=== PATIENT | male | born 1965 | race Caucasian/White ===

== ENCOUNTER 2017-02-22 05:23 | Emergency (ER) | payer SELFPAY ==
--- NOTE | 2017-02-22 08:26 | DIAGNOSTIC IMAGING REPORT ---
PROCEDURE: XR CHEST 1 VIEW INDICATION: CHEST PAIN TECHNIQUE: Single view chest. 05:43 hours COMPARISON: None. FINDINGS: The cardiomediastinal contour and central vasculature are normal. The lungs are clear without focal consolidation, pleural effusion or pneumothorax. The osseous structures are intact. IMPRESSION: 1. No evidence of acute cardiopulmonary disease.
--- NOTE | 2017-02-22 09:44 | ED CLINICAL REPORT ---
Clinical Report - Physicians/Mid Levels [facility] [address] [place] [place] [address] 02/22/2017 5:23 Patient: KD DOMINGUEZ Time Seen: 525. Arrived- By private vehicle. Historian- patient. HISTORY OF PRESENT ILLNESS Chief Complaint: CHEST PAIN. At its maximum, severity described as moderate. When seen in the E.D., severity described as moderate. Modifying factors. Not worsened by anything. Not relieved by anything. It is described as burning and it is described as located in the central chest area. No radiation. This started today and is still present. It was abrupt in onset and has been constant and waxing/waning but is not gone now. Onset during rest. The patient has had nausea and vomiting. (burping and sour taste in mouth.). No difficulty breathing or diaphoresis. No additional chest pain. Similar symptoms previously: (hx of GERD). Recent medical care: Not recently seen/assessed. REVIEW OF SYSTEMS No fever, chills or skin rash. All systems otherwise negative, except as recorded above. PAST HISTORY Denies the following risk factors for DVT/PE - history of DVT and pulmonary embolism, recent surgery, recent MS and congestive heart failure. Denies the following risk factors for DVT/PE - cancer, clotting disorder, estrogens, obesity and immobility. Denies the following risk factors for DVT/PE - advanced in age and vena cava filter. Medications: Triglyceride pill. Blood Pressure Pill. Ranitidine HCl Oral. Aciphex Oral. Allergies: Codeine. SOCIAL HISTORY Never smoker. No alcohol use or drug use. No recent travel. Is a local resident. FAMILY HISTORY History of heart disease with premature onset in first-degree relative (father). ADDITIONAL NOTES The nursing notes have been reviewed. PHYSICAL EXAM Vital Signs: 02/22/2017 05:30 BP: 153/84. HR: 57. RR: 16. O2 saturation: 95%. 02/22/2017 05:29 Temp: 97.7 F. Blood pressure normal. Oxygen saturation normal. Appearance: Alert. Oriented X3. Patient in mild distress. (non-toxic. polite. pleasant. cooperative.). ENT: Ears normal. Nose normal. Pharynx normal. Neck: Normal inspection. Neck supple. CVS: Normal heart rate and rhythm. Heart sounds normal. Pulses normal. Respiratory: No respiratory distress. Breath sounds normal. Chest nontender. Abdomen: Soft and nontender. Bowel sounds normal. Back: Normal external inspection. Skin: Skin warm and dry. Normal skin color. No rash. Normal skin turgor. Extremities: Extremities exhibit normal ROM. No lower extremity edema. Neuro: Oriented X 3. No motor deficit. No sensory deficit. LABS, X-RAYS, AND EKG EKG: No acute process. No acute ischemia. Narrow-complex bradycardia (56). Sinus bradycardia. Normal P waves. Normal ENA. Normal QRS complex. Normal axis. Normal ST and T waves, QT and QTc. Prior EKG unavailable. The study has been interpreted contemporaneously by me. The study has been independently viewed by me. The EKG appears to be a good tracing. Chest X-ray: No acute disease. Normal lung markings present. Mediastinum normal. Great vessels normal. No infiltrate. No fracture. No bony lesion present. Views: PA. Technique: good. The X-rays were independently viewed by me and interpreted contemporaneously by me. Laboratory Tests: UA-Culture if indicated: (FRANCISCO: 02/22/2017 10:10) ( MsgRcvd 02/22/2017 10:26) Final results Test Result Flag Units (Reference) URINE COLOR YELLOW URINE APPEARANCE CLEAR URINE GLUCOSE NEGATIVE (NEGATIVE) URINE BILIRUBIN NEGATIVE (NEGATIVE) URINE KETONE NEGATIVE (NEGATIVE) URINE SPECIFIC GRAVITY 1.015 (1.010-1.030) URINE PH 7.0 (5.0-8.0) URINE PROTEIN NEGATIVE (NEGATIVE) URINE UROBILINOGEN 0.2 EU/dL (0.2-1.0) URINE NITRITE NEGATIVE (NEGATIVE) URINE BLOOD NEGATIVE (NEGATIVE) URINE LEUK ESTERASE NEGATIVE (NEGATIVE) URINE RBC 0-1 rbc/hpf (0-1) URINE WBC 0-1 wbc/hpf (0-1) URINE EPITHELIAL CELLS 0-1 EPI/hpf (0-5) URINE BACTERIA NONE SEEN (NONE SEEN) URINE COMMENT CULT NOT INDICATED URINE CULTURES ARE SET-UP BASED ON THE FOLLOWING CRITERIA:POSITIVE NITRITEPOSITIVE LEUKOCYTE ESTERASEGREATER THAN 10 WHITE BLOOD CELLSMODERATE (2+) OR GREATER BACTERIA CBC w Diff: (FRANCISCO: 02/22/2017 05:29) ( [facility] 02/22/2017 05:43) Final results Test Result Flag Units (Reference) WHITE BLOOD COUNT 5.8 K/uL (4.5-11.5) RED BLOOD COUNT 4.88 M/uL (4.50-5.90) HEMOGLOBIN 13.9 gm/dL (13.5-17.5) HEMATOCRIT 41.5 % (41.0-53.0) MEAN CELL VOLUME 85 fL (80-100) MEAN CORPUSCULAR HGB 28 pg (26-34) MEAN CORPUSCULAR HGB CONC 33 g/dL (31-37) RED CELL DISTRIBUTION WIDTH 14.1 % (11.6-14.8) PLATELET COUNT 199 K/uL (150-400) NEUTROPHIL % 48.3 L % (50-75) LYMPH % 41.9 H % (25-40) MONO % 7.7 % (3-14) EOSINOPHIL % 1.8 % (0-4) BASOPHIL % 0.3 % (0-2) PT with INR: (FRANCISCO: 02/22/2017 05:29) ( [facility] 02/22/2017 05:50) Final results Test Result Flag Units (Reference) INR 0.9 (0.8-1.2) Low Intensity Therapy: INR 1.5-2.0 PT range 18.5-23.1Mod.Intensity Therapy: INR 2.0-3.0 PT range 23.1-31.5High Intensity Therapy: INR 2.5-3.5 PT range 27.4-35.5High Intensity Therapy 2: INR 3.0-4.0 PT range 31.5-39.3 Troponin-I: (FRANCISCO: 02/22/2017 11:49) ( [facility] 02/22/2017 12:33) Final results Test Result Flag Units (Reference) TROPONIN I 0.05 ng/mL (0.00-1.5) TROPONIN REFERENCE RANGE:<0.1 NEGATIVE0.1-1.5 INDETERMINANT>1.5 POSITIVE Troponin-I: (FRANCISCO: 02/22/2017 07:40) ( MsgRcvd 02/22/2017 08:25) Final results Test Result Flag Units (Reference) TROPONIN I 0.08 ng/mL (0.00-1.5) TROPONIN REFERENCE RANGE:<0.1 NEGATIVE0.1-1.5 INDETERMINANT>1.5 POSITIVE CMP: (FRANCISCO: 02/22/2017 05:29) ( MsgRcvd 02/22/2017 05:59) Final results Test Result Flag Units (Reference) GLUCOSE 142 H mg/dL (70-110) BUN 16 mg/dL (7-18) CREATININE 1.5 H mg/dL (0.6-1.3) Estimated GFR 52.87 mL/min Estimated GFR- >60 mL/min Note: Persistent reduction over 3 months in eGFR<60 mL/min/1.73 m2 defines CKD. Patients with eGFR values>=60 mL/min/1.73 m2 may also have CKD if evidence ofpersistent proteinuria. Additional information may be foundat www.kidney.org. SODIUM 139 mmol/L (136-145) POTASSIUM 4.0 mmol/L (3.5-5.1) CHLORIDE 102 mmol/L (98-107) CARBON DIOXIDE 28 mmol/L (21-32) CALCIUM 9.0 mg/dL (8.5-10.1) TOTAL PROTEIN 7.6 g/dL (6.4-8.2) ALBUMIN 3.8 g/dL (3.3-5.0) BILIRUBIN, TOTAL 0.5 mg/dL (0.0-1.0) ALKALINE PHOSPHATASE 57 U/L (46-116) AST (SGOT) 15 U/L (15-37) ALT (SGPT) 26 U/L (12-78) TROPONIN I 0.06 ng/mL (0.00-1.5) TROPONIN REFERENCE RANGE:<0.1 NEGATIVE0.1-1.5 INDETERMINANT>1.5 POSITIVE . PROGRESS AND PROCEDURES Course of Care: The patient is a 51-year-old male with past medical history significant for reflux presenting for evaluation of chest pain. Symptoms at this time appear to be reflux in nature. Patient will be evaluated with GI cocktail as well as laboratory studies for evaluation of patient's chest pain. Patient is at low risk on the well's score. Patient is agreeable to the treatment plan. At this time differential diagnosis includes gastritis versus reflux versus acute myocardial infarction. Patient was reevaluated after the GI cocktail was provided. Patient reported relief of his symptom Because of the patient's improvement with symptoms of pain with the GI cocktail feel the patient's discomfort is likely due to the reflux. Patient however will be evaluated with a delta troponin for further evaluation of the patient's possible cardiac etiology of his pain howeverlow likelihood at this point given the patient's response to the GI cocktail. Had a discussion with patient in regards to the workup and diagnosis as well as plan of care at this point. Patient is agreeable to staying in the emergency department until the second laboratory study has been obtained. The patient's laboratory studies and imaging as well as EKG are otherwise unremarkable. Patient is resting in bed in no acute distress. GI cocktail continued to improve the patient's pain while here in the emergency department. Do not feel further workup in the emergency department or admission to the hospital required at this point in time. Patient does report chest pain and will be referred to cardiology for further workup and management. Patient reports that he had a negative stress test about a year ago. This puts the patient that even lower risk for acute myocardial infarction. Patient will be encouraged to follow up with his family caseworker. If the patient is unable to follow up with his family caseworker informed him he is more than welcome to follow up with the family caseworker on our referral list. Prior to patient's departure from the emergency department is noted to be resting in bed and in no acute distress. CLINICAL IMPRESSION 02/22/2017 05:30 BP: 153/84. HR: 57. RR: 16. O2 saturation: 95%. 02/22/2017 05:29 Temp: 97.7 F. Oxygen saturation normal. Atypical chest pain .12 lead EKG performed. INSTRUCTIONS Prescription Medications: Prednisone every day for 5 days. Dispense sufficient quantity. No refills. (60 mg PO) (Electronically signed by John Márquez Dr. 02/27/2017 3:31) Time Seen: 525. Arrived- By private vehicle. Historian- patient. HISTORY OF PRESENT ILLNESS Chief Complaint: CHEST PAIN. At its maximum, severity described as moderate. When seen in the E.D., severity described as moderate. Modifying factors. Not worsened by anything. Not relieved by anything. It is described as burning and it is described as located in the central chest area. No radiation. This started today and is still present. It was abrupt in onset and has been constant and waxing/waning but is not gone now. Onset during rest. The patient has had nausea and vomiting. (burping and sour taste in mouth.). No difficulty breathing or diaphoresis. No additional chest pain. Similar symptoms previously: (hx of GERD). Recent medical care: Not recently seen/assessed. REVIEW OF SYSTEMS No fever, chills or skin rash. All systems otherwise negative, except as recorded above. PAST HISTORY Denies the following risk factors for DVT/PE - history of DVT and pulmonary embolism, recent surgery, recent MS and congestive heart failure. Denies the following risk factors for DVT/PE - cancer, clotting disorder, estrogens, obesity and immobility. Denies the following risk factors for DVT/PE - advanced in age and vena cava filter. Medications: Triglyceride pill. Blood Pressure Pill. Ranitidine HCl Oral. Aciphex Oral. Allergies: Codeine. SOCIAL HISTORY Never smoker. No alcohol use or drug use. No recent travel. Is a local resident. FAMILY HISTORY History of heart disease with premature onset in first-degree relative (father). ADDITIONAL NOTES The nursing notes have been reviewed. PHYSICAL EXAM Vital Signs: 02/22/2017 05:30 BP: 153/84. HR: 57. RR: 16. O2 saturation: 95%. 02/22/2017 05:29 Temp: 97.7 F. Blood pressure normal. Oxygen saturation normal. Appearance: Alert. Oriented X3. Patient in mild distress. (non-toxic. polite. pleasant. cooperative.). Neck: Normal inspection. Neck supple. CVS: Normal heart rate and rhythm. Heart sounds normal. Pulses normal. Respiratory: No respiratory distress. Breath sounds normal. Chest nontender. Abdomen: Soft and nontender. Bowel sounds normal. Back: Normal external inspection. Skin: Skin warm and dry. Normal skin color. No rash. Normal skin turgor. Extremities: Extremities exhibit normal ROM. No lower extremity edema. Neuro: Oriented X 3. No motor deficit. No sensory deficit. LABS, X-RAYS, AND EKG EKG: No acute process. No acute ischemia. Narrow-complex bradycardia (56). Sinus bradycardia. Normal P waves. Normal ENA. Normal QRS complex. Normal axis. Normal ST and T waves, QT and QTc. Prior EKG unavailable. The study has been interpreted contemporaneously by me. The study has been independently viewed by me. The EKG appears to be a good tracing. Chest X-ray: No acute disease. Normal lung markings present. Mediastinum normal. Great vessels normal. No infiltrate. No fracture. No bony lesion present. Views: PA. Technique: good. The X-rays were independently viewed by me and interpreted contemporaneously by me. Laboratory Tests: CBC w Diff: (FRANCISCO: 02/22/2017 05:29) ( MsgRcvd 02/22/2017 05:43) Final results Test Result Flag Units (Reference) WHITE BLOOD COUNT 5.8 K/uL (4.5-11.5) RED BLOOD COUNT 4.88 M/uL (4.50-5.90) HEMOGLOBIN 13.9 gm/dL (13.5-17.5) HEMATOCRIT 41.5 % (41.0-53.0) MEAN CELL VOLUME 85 fL (80-100) MEAN CORPUSCULAR HGB 28 pg (26-34) MEAN CORPUSCULAR HGB CONC 33 g/dL (31-37) RED CELL DISTRIBUTION WIDTH 14.1 % (11.6-14.8) PLATELET COUNT 199 K/uL (150-400) NEUTROPHIL % 48.3 L % (50-75) LYMPH % 41.9 H % (25-40) MONO % 7.7 % (3-14) EOSINOPHIL % 1.8 % (0-4) BASOPHIL % 0.3 % (0-2) PT with INR: (FRANCISCO: 02/22/2017 05:29) ( MsgRcvd 02/22/2017 05:50) Final results Test Result Flag Units (Reference) INR 0.9 (0.8-1.2) Low Intensity Therapy: INR 1.5-2.0 PT range 18.5-23.1Mod.Intensity Therapy: INR 2.0-3.0 PT range 23.1-31.5High Intensity Therapy: INR 2.5-3.5 PT range 27.4-35.5High Intensity Therapy 2: INR 3.0-4.0 PT range 31.5-39.3 Troponin-I: (FRANCISCO: 02/22/2017 07:40) ( [facility]) Final results Test Result Flag Units (Reference) TROPONIN I 0.08 ng/mL (0.00-1.5) TROPONIN REFERENCE RANGE:<0.1 NEGATIVE0.1-1.5 INDETERMINANT>1.5 POSITIVE CMP: (FRANCISCO: 02/22/2017 05:29) ( [facility] Final results Test Result Flag Units (Reference) GLUCOSE 142 H mg/dL (70-110) BUN 16 mg/dL (7-18) CREATININE 1.5 H mg/dL (0.6-1.3) Estimated GFR 52.87 mL/min Estimated GFR- >60 mL/min Note: Persistent reduction over 3 months in eGFR<60 mL/min/1.73 m2 defines CKD. Patients with eGFR values>=60 mL/min/1.73 m2 may also have CKD if evidence ofpersistent proteinuria. Additional information may be foundat www.kidney.org. SODIUM 139 mmol/L (136-145) POTASSIUM 4.0 mmol/L (3.5-5.1) CHLORIDE 102 mmol/L (98-107) CARBON DIOXIDE 28 mmol/L (21-32) CALCIUM 9.0 mg/dL (8.5-10.1) TOTAL PROTEIN 7.6 g/dL (6.4-8.2) ALBUMIN 3.8 g/dL (3.3-5.0) BILIRUBIN, TOTAL 0.5 mg/dL (0.0-1.0) ALKALINE PHOSPHATASE 57 U/L (46-116) AST (SGOT) 15 U/L (15-37) ALT (SGPT) 26 U/L (12-78) TROPONIN I 0.06 ng/mL (0.00-1.5) TROPONIN REFERENCE RANGE:<0.1 NEGATIVE0.1-1.5 INDETERMINANT>1.5 POSITIVE . Pulse Oximetry: 02/22/2017 05:30 O2 saturation: 95%. (FIO2 - room air). Interpretation: normal. PROGRESS AND PROCEDURES Course of Care: Pt was signed out to me by Dr. Márquez at change of shift, pending repeat troponin and stress test in the afternoon. Pt remained stable and without further complaints in the ED. His repeat troponin was unremarkable, and his stress test was negative, per Dr. Sauer. Pt was feeling well, and I felt he was stable for d/c home. Discussed case with hospitalist, (Camacho). Reviewed test results. Patient and spouse counseled in person regarding the patient's stable condition, test results, diagnosis and need for follow-up. Concerns were addressed. Old medical records reviewed. Disposition: Discharged. Condition: stable and improved. CLINICAL IMPRESSION 02/22/2017 05:30 BP: 153/84. HR: 57. RR: 16. O2 saturation: 95%. 02/22/2017 05:29 Temp: 97.7 F. Oxygen saturation normal. Atypical chest pain .12 lead EKG performed. INSTRUCTIONS Do not work today. (Your stress test looks great--completely normal. Your last set of cardiac enzymes (bloodwork) is normal, also. No emergent cause of your chest pain has been found.). Warnings: GENERAL WARNINGS: Return or contact your physician immediately if your condition worsens or changes unexpectedly, if not improving as expected, or if other problems arise. Your Current Medications: CONTINUE TAKING THE FOLLOWING MEDICATIONS: Aciphex Oral. Blood Pressure Pill*. Ranitidine HCl Oral. Triglyceride pill*. Prescription Medications: Prednisone 20 mg: take 3 orally every day for 5 days. Dispense fifteen (15). No refills. Follow-up: Follow up with your doctor in seven days if not better. Understanding of the discharge instructions verbalized by patient. (Electronically signed by Janie Munoz MD 02/27/2017 21:50)
--- NOTE | 2017-02-22 09:44 | ED ORDER SUMMARY ---
..... Patient: KD DOMINGUEZ OrderSheet [facility] VisitID: [id number] [place] [address] 51y, M Registration Date/Time: 02/22/2017 ORDER SHEET Weight: 104.3 kg (stated) Allergies: Codeine GENERAL ORDERS: Chest 1V Urgent (05:36 02/22/2017 Charbel Etienne) (Ack 5:39 SRedmond) (5:53 EInderbitzen R.N.) Squadron Worker (Continuous) (CP) (05:36 02/22/2017 Charbel Etienne) (Ack 5:39 SRedmond) (5:53 EInderbitzen R.N.) CBC w Diff Urgent (:02/22/2017 Charbel Etienne) (Ack 5:39 SRedmond) (5:53 EInderbitzen R.N.) CMP Urgent (05:02/22/2017 Charbel Etienne) (Ack 5:39 SRedmond) (5:53 EInderbitzen R.N.) UA-Culture if indicated Urgent (05:36 02/22/2017 Charbel Etienne) (Ack 5:39 SRedmond) (Sent 5:53 EInderbitzen R.N.) (12:16 LWhalen R.N.) PT with INR Urgent (05:36 02/22/2017 Charbel Etienne) (Ack 5:39 SRedmond) (5:53 EInderbitzen R.N.) Troponin-I Urgent (05:36 02/22/2017 Charbel Etienne) (Ack 5:39 SRedmond) (5:53 EInderbitzen R.N.) Pulse oximeter (05:36 02/22/2017 Charbel Etienne) (Ack 5:39 SRedmond) (5:53 EInderbitzen R.N.) Troponin-I (redraw 2 hours after first draw) Urgent (06:54 02/22/2017 Charbel Etienne) (Ack 6:57 SRedmond) (7:42 OHjordy) - (cardiac stress test) (09:33 02/22/2017 Charbel Etienne) (Ack 11:01 Tracy) (Cancelled: Duplicate Order11:15 Charbel Etienne) Troponin-I (redraw at 11:30am) Urgent (09:36 02/22/2017 Charbel Etienne) (Ack 9:39 Tracy) (12:16 LWhalen R.N.) MEDICATION ORDERS: GI Cocktail WHITE PO 30 mL (NOW) (05:36 02/22/2017 Charbel Etienne) (5:54 EInderbitzen R.N.) Phenergan IV 25 mg (HIGH ALERT MEDICATION, NOW) (06:38 02/22/2017 Charbel Etienne) (6:53 EInderbitzen R.N.) GI Cocktail WHITE PO 30 mL (once after nausea improves) (06:54 02/22/2017 Charbel Etienne) (Ack 6:59 EInderbitzen R.N.) (7:52 LWhalen R.N.) Aspirin PO 325 mg (Do not crush or chew, NOW) (09:12 02/22/2017 Charbel Etienne) (9:24 JSimbeck R.N.) IV FLUIDS: IV Saline Lock (05:36 02/22/2017 Charbel Etienne) (5:53 EInderbitzen R.N.) Zofran IV 4 mg (NOW) (05:54 02/22/2017 EInderbitzen R.N. verbal order read back to Charbel Etienne) (5:54 EInderbitzen R.N.) Morphine IV 4 mg (HIGH ALERT MEDICATION, NOW) (06:11 02/22/2017 Charbel Etienne) (6:15 EInderbitzen R.N.) IV NS : initial bolus 1000 mL (1000 mL/hr), then none - for X1 (NOW) (07:44 02/22/2017 Charbel Etienne) (7:52 LWhalen R.N.) ORDER SHEET NOTES: [Electronically signed by Ellen Louis R.N. (19:33 02/22/2017)] [Electronically signed by Jhon Márquez Dr. (03:31 02/27/2017)] [Electronically signed by Janie Munoz MD (21:50 02/27/2017)] [Electronically locked/signed by Ellen Louis R.N. (19:33 02/22/2017)]
--- NOTE | 2017-02-22 09:44 | ED NURSING NOTES ---
Clinical Report - Nurses [facility] [address] [place] [address] 02/22/2017 5:23 Patient: KD DOMINGUEZ TRIAGE Triage time 05:Feb 22 2017. Acuity: LEVEL 2. Chief Complaint: CHEST PAIN. 05:02/22/17. SEPSIS SCREEN: Sepsis Screen. Negative (no infection suspected/documented). JEREMI COMA SCORE: Jeremi Coma Scale: 15- eyes open spontaneously (4); best verbal response- oriented x 4 (5); best motor response- obeys commands (6). --05:29 Rosio Macdonald R.N. 05:29 02/22/17. Temp: 97.7 F. --05:29 Rosio Macdonald R.N. 05:30 02/22/17. BP: 153/84. HR: 57. RR: 16. O2 saturation: 95%. Pain level now 9/10. --05:30 Rosio Macdonald R.N. Weight: 104.3 kg stated. Height/Length: 70 inches Per Patient. BMI: 33. --05:24 Rosio Macdonald R.N. Medications Aciphex Oral. --05:27 Rosio Macdonald R.N. Ranitidine HCl Oral. --05:27 Rosio Macdonald R.N. Blood Pressure Pill. --05:27 Rosio Macdonald R.N. Triglyceride pill. --05:27 Rosio Macdonald R.N. Medication/allergy information source: the patient. --05:29 Rosio Macdonald R.N. Allergies Codeine. --05:26 Rosio Macdonald R.N. History Arrived by private vehicle. Historian: patient. Accompanied by family and spouse. This started today. Onset. (3 AM woke him from sleep). ( burning pain in epigastric area, burping, sweating, nauseated. Has history of reflux but it has never felt like this). He has had difficulty breathing and nausea. Reports experiencing sweating episodes. No vomiting. 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 SOCIAL HX: Never smoker. No alcohol use or drug use. ABUSE ASSESSMENT: No report of abuse. SELF HARM ASSESSMENT: A self harm assessment was performed. The patient answered "no" to the question "Have you recently felt down, depressed, or hopeless?", "Have you noticed less interest or pleasure in doing things?", "Do you have thoughts of harming or killing yourself?", "Are you here because you tried to hurt yourself?", "Have you ever tried to hurt yourself before today?", "Have you recently had thoughts about harming or killing others?" and "Do you have any dangerous items in your possession?". NUTRITIONAL RISK ASSESSMENT: The nutritional risk assessment revealed no deficiencies. FUNCTIONAL ASSESSMENT: Functional assessment: no impairments noted. LEARNING NEEDS ASSESSMENT: The learning needs assessment revealed no barriers. SKIN INTEGRITY ASSESSMENT: Skin integrity risk assessment completed. No skin integrity risk identified. --05:29 Rosio Macdonald R.N. PROBLEMS: Hypertension. Hypercholesterolemia. Acid Reflux. --05:27 Rosio Macdonald R.N. ADDITIONAL SURGERIES: Arm surgery. Carpal Tunnel Surgery. --05:27 Rosio Macdonald R.N. Interventions ID band on patient. --05:29 Rosio Macdonald R.N. PHYSICAL ASSESSMENT 05:32 02/22/17. Ambulatory to room. GENERAL / NEURO / PSYCH: Alert. Oriented X 4. Appears in pain and anxious. RESPIRATORY: Breath sounds within normal limits. CVS: Cardiac rhythm: sinus bradycardia. Pulses within normal limits. ( chest pain, mid sternal radiating to back). Pulses: right radial 2+ and left radial 2+. GI / : The patient has had nausea. Abdomen soft and nontender. EXTREMITIES: No lower extremity edema. SKIN: Skin is dry but cool. Skin is non-tender. --05:32 Rosio Macdonald R.N. NURSING PROGRESS NOTES 05:30 02/22/2017 Site #1 started via IV in the right antecubital space with an 20g angiocath, with aseptic technique and good blood return; one attempt. Blood drawn: rainbow set. Labeled in the presence of the patient and sent to the lab. Saline lock flushed with 10 mL saline. --05:53 Rosio Macdonald R.N. late entry - 05:30 02/22/17. EKG time: (05:Feb 22 2017). EKG was performed by a adriana and shown to the ED physician. --05:58 Rosio Macdonald R.N. 05:30 02/22/17. Cardiac rhythm: normal sinus rhythm. The initial plan of care for this patient includes an assessment with efforts to address impairment of the cardiovascular and gastrointestinal system. This plan of care was discussed with the patient. bus driver/monitor and pulse oximeter placed on patient; cardiac exercise specialist- Lead II; monitor alarms on. Patient gowned. Patient identifiers checked. Call light placed in reach. Side rails up x 1. Bed placed in lowest position. Brakes of bed on. --05:30 Rosio Macdonald R.N. 05:42 02/22/2017 GI COCKTAIL WHITE (Simethicone) PO Oral Suspension 30 mL given. Allergies verified and confirmed 5 rights. --05:54 Rosio Macdonald R.N. 05:42 02/22/2017 Zofran (Ondansetron HCl) IVP 4 mg given over 1 minute(s) via site #1. Allergies verified and confirmed 5 rights. IV patency established. IV site checked: no pain, redness, or swelling. IV flushed thoroughly pre- and post-medication administration. IVP given by RN. --05:54 Rosio Macdonald R.N. 05:58 02/22/17. Reassessment after medication administered. Overall patient status is the same- he states feels the same. GI / : The patient reports nausea that is associated with vomiting. --05:58 Rosio Macdonald R.N. 06:03 02/22/17. Cardiac rhythm: sinus bradycardia. --06:04 Rosio Macdonald R.N. 06:03 02/22/17. BP: 136/69. HR: 52. RR: 15. O2 saturation: 98%. Pain level now 8. --06:04 Rosio Macdonald R.N. 06:12 02/22/2017 Morphine IVP 4 mg given over 1 minute(s) via site #1. Allergies verified, confirmed 5 rights and sedative warning given to the patient and patient's family. IV patency established. IV site checked: no pain, redness, or swelling. IV flushed thoroughly pre- and post-medication administration. IVP given by RN. --06:15 Rosio Macdonald R.N. 06:40 02/22/17. Reassessment after medication administered. He is resting quietly and has had no adverse reaction. Overall patient status is the same- he states feels the same. --06:52 Rosio Macdonald R.N. 06:40 02/22/17. BP: 122/86. HR: 55. RR: 16. O2 saturation: 93%. --06:52 Rosio Macdonald R.N. 06:45 02/22/2017 Started 25 mg of PHENERGAN (Promethazine HCl) IVPB in bag #1 50 mL; at 200 mL/hr over 15 minute(s) via site #1 via IV pump. Allergies verified and confirmed 5 rights. IV patency established. IV site checked: no pain, redness, or swelling. IV flushed thoroughly pre- and post-medication administration. --06:53 Rosio Macdonald R.N. 11:15 02/22/17. BP: 125/80. HR: 51. RR: 18. O2 saturation: 96%. 10:02/22/17. BP: 117/76. HR: 51. RR: 15. O2 saturation: 96%. 09:02/22/17. BP: 116/68. HR: 49. RR: 14. O2 saturation: 95%. 08:02/22/17. BP: 116/70. HR: 95. RR: 18. O2 saturation: 95%. --11:41 Ellen Louis R.N. 07:45 02/22/2017 PHENERGAN IVPB Discontinued: bag #1 infused. Total amount infused: 100 mL. IV patency established. IV site checked: no pain, redness, or swelling. IV flushed thoroughly. --12:17 Ellen Louis R.N. 07:52 02/22/2017 GI COCKTAIL WHITE (Simethicone) PO Oral Suspension 30 mL given. Allergies verified and confirmed 5 rights. --07:52 Ellen Louis R.N. 07:52 02/22/2017 Started bag #1 1000 mL IV Fluids IV NS (Saline); at 999 mL/hr over 1 hour(s) via site #1 via dial-a-flow. Allergies verified and confirmed 5 rights. IV patency established. IV site checked: no pain, redness, or swelling. IV flushed thoroughly pre- and post-medication administration. --07:52 Ellen Louis R.N. 09:16 02/22/2017 IV Fluids IV NS Discontinued: bag #1 infused. Total amount infused: 1000 mL. IV patency established. IV site checked: no pain, redness, or swelling. IV flushed thoroughly. --12:16 Ellen Louis R.N. 09:24 02/22/2017 Aspirin PO Tablets 325 mg given. Allergies verified and confirmed 5 rights. --09:24 Kel Ambrosio R.N. 15:48 02/22/17. BP: 127/81. HR: 71. RR: 18. O2 saturation: 96%. 14:02/22/17. BP: 121/66. HR: 53. RR: 18. O2 saturation: 93%. 13:02/22/17. BP: 131/78. HR: 60. RR: 16. O2 saturation: 98%. 12:02/22/17. BP: 120/65. HR: 45. RR: 18. O2 saturation: 95%. 11:02/22/17. BP: 125/80. HR: 51. RR: 18. O2 saturation: 96%. 10:02/22/17. BP: 117/76. HR: 51. RR: 15. O2 saturation: 96%. 09:02/22/17. BP: 116/68. HR: 49. RR: 14. O2 saturation: 95%. 08:15 02/22/17. BP: 116/70. HR: 95. RR: 18. O2 saturation: 95%. 07:44 02/22/17. BP: 93/45. HR: 52. RR: 18. O2 saturation: 95%. --15:49 Ellen Louis R.N. 16:03 02/22/2017 Site #1 removed upon discharge. Bandage applied. --16:03 Marisela Blackburn R.N. DISPOSITION / DISCHARGE Condition at departure: improved. No learning barriers present. Discharge instructions provided and reviewed with the patient and spouse. Reviewed warnings. Reviewed medication(s). Treatments reviewed. Reviewed referrals. Patient verbalized understanding. Written instructions provided in Spanish. The patient was discharged home and accompanied by spouse. He left the Emergency Department ambulatory and via private vehicle. Spouse driving. --15:50 Ellen Louis R.N. 15:48 02/22/17. BP: 127/81. HR: 71. RR: 18. O2 saturation: 96%. --15:50 Ellen Louis R.N. 16:11 02/22/17. Temp: 98.8 F. --16:11 Ellen Louis R.N. Departure time: 16:Feb 22 2017. --16:11 Ellen Louis R.N. 16:11 02/22/17. Pain level now 0/10. --16:12 Ellen Louis R.N. Locked/Released at 02/22/2017 19:33 by Ellen Louis R.N.
--- NOTE | 2017-02-22 09:44 | ED ORDER SUMMARY ---
..... Patient: KD DOMINGUEZ OrderSheet [facility] VisitID: [id number] [place] [address] 51y, M Registration Date/Time: 02/22/2017 ORDER SHEET Weight: 104.3 kg (stated) Allergies: Codeine GENERAL ORDERS: Chest 1V Urgent (05:36 02/22/2017 Charbel Etienne) (Ack 5:39 SRedmond) (5:53 EInderbitzen R.N.) Electrical Controls Technician (Continuous) (CP) (05:36 02/22/2017 Charbel Etienne) (Ack 5:39 SRedmond) (5:53 EInderbitzen R.N.) CBC w Diff Urgent (:02/22/2017 Charbel Etienne) (Ack 5:39 SRedmond) (5:53 EInderbitzen R.N.) CMP Urgent (05:02/22/2017 Charbel Etienne) (Ack 5:39 SRedmond) (5:53 EInderbitzen R.N.) UA-Culture if indicated Urgent (05:36 02/22/2017 Charbel Etienne) (Ack 5:39 SRedmond) (Sent 5:53 EInderbitzen R.N.) (12:16 LWhalen R.N.) PT with INR Urgent (05:36 02/22/2017 Charbel Etienne) (Ack 5:39 SRedmond) (5:53 EInderbitzen R.N.) Troponin-I Urgent (05:36 02/22/2017 Charbel Etienne) (Ack 5:39 SRedmond) (5:53 EInderbitzen R.N.) Pulse oximeter (05:36 02/22/2017 Charbel Etienne) (Ack 5:39 SRedmond) (5:53 EInderbitzen R.N.) Troponin-I (redraw 2 hours after first draw) Urgent (06:54 02/22/2017 Charbel Etienne) (Ack 6:57 SRedmond) (7:42 OHjordy) - (cardiac stress test) (09:33 02/22/2017 Charbel Etienne) (Ack 11:01 Tracy) (Cancelled: Duplicate Order11:15 Charbel Etienne) Troponin-I (redraw at 11:30am) Urgent (09:36 02/22/2017 Charbel Etienne) (Ack 9:39 Tracy) (12:16 LWhalen R.N.) MEDICATION ORDERS: GI Cocktail WHITE PO 30 mL (NOW) (05:36 02/22/2017 Charbel Etienne) (5:54 EInderbitzen R.N.) Phenergan IV 25 mg (HIGH ALERT MEDICATION, NOW) (06:38 02/22/2017 Charbel Etienne) (6:53 EInderbitzen R.N.) GI Cocktail WHITE PO 30 mL (once after nausea improves) (06:54 02/22/2017 Charbel Etienne) (Ack 6:59 EInderbitzen R.N.) (7:52 LWhalen R.N.) Aspirin PO 325 mg (Do not crush or chew, NOW) (09:12 02/22/2017 Charbel Etienne) (9:24 JSimbeck R.N.) IV FLUIDS: IV Saline Lock (05:36 02/22/2017 Charbel Etienne) (5:53 EInderbitzen R.N.) Zofran IV 4 mg (NOW) (05:54 02/22/2017 EInderbitzen R.N. verbal order read back to Charbel Etienne) (5:54 EInderbitzen R.N.) Morphine IV 4 mg (HIGH ALERT MEDICATION, NOW) (06:11 02/22/2017 Charbel Etienne) (6:15 EInderbitzen R.N.) IV NS : initial bolus 1000 mL (1000 mL/hr), then none - for X1 (NOW) (07:44 02/22/2017 Charbel Etienne) (7:52 LWhalen R.N.) ORDER SHEET NOTES: [Electronically signed by Ellen Louis R.N. (19:33 02/22/2017)] [Electronically signed by John M[address]quez Dr[address] (03:31 02/27/2017)] [Electronically signed by Janie Munoz MD (21:50 02/27/2017)] [Electronically locked/signed by Ellen Louis R.N. (19:33 02/22/2017)]
--- NOTE | 2017-02-22 09:44 | ED CLINICAL REPORT ---
Clinical Report - Physicians/Mid Levels [facility] [address] [place] [address] 02/22/2017 5:23 Patient: KD DOMINGUEZ Time Seen: 525. Arrived- By private vehicle. Historian- patient. HISTORY OF PRESENT ILLNESS Chief Complaint: CHEST PAIN. At its maximum, severity described as moderate. When seen in the E.D., severity described as moderate. Modifying factors. Not worsened by anything. Not relieved by anything. It is described as burning and it is described as located in the central chest area. No radiation. This started today and is still present. It was abrupt in onset and has been constant and waxing/waning but is not gone now. Onset during rest. The patient has had nausea and vomiting. (burping and sour taste in mouth.). No difficulty breathing or diaphoresis. No additional chest pain. Similar symptoms previously: (hx of GERD). Recent medical care: Not recently seen/assessed. REVIEW OF SYSTEMS No fever, chills or skin rash. All systems otherwise negative, except as recorded above. PAST HISTORY Denies the following risk factors for DVT/PE - history of DVT and pulmonary embolism, recent surgery, recent KS and congestive heart failure. Denies the following risk factors for DVT/PE - cancer, clotting disorder, estrogens, obesity and immobility. Denies the following risk factors for DVT/PE - advanced in age and vena cava filter. Medications: Triglyceride pill. Blood Pressure Pill. Ranitidine HCl Oral. Aciphex Oral. Allergies: Codeine. SOCIAL HISTORY Never smoker. No alcohol use or drug use. No recent travel. Is a local resident. FAMILY HISTORY History of heart disease with premature onset in first-degree relative (father). ADDITIONAL NOTES The nursing notes have been reviewed. PHYSICAL EXAM Vital Signs: 02/22/2017 05:30 BP: 153/84. HR: 57. RR: 16. O2 saturation: 95%. 02/22/2017 05:29 Temp: 97.7 F. Blood pressure normal. Oxygen saturation normal. Appearance: Alert. Oriented X3. Patient in mild distress. (non-toxic. polite. pleasant. cooperative.). ENT: Ears normal. Nose normal. Pharynx normal. Neck: Normal inspection. Neck supple. CVS: Normal heart rate and rhythm. Heart sounds normal. Pulses normal. Respiratory: No respiratory distress. Breath sounds normal. Chest nontender. Abdomen: Soft and nontender. Bowel sounds normal. Back: Normal external inspection. Skin: Skin warm and dry. Normal skin color. No rash. Normal skin turgor. Extremities: Extremities exhibit normal ROM. No lower extremity edema. Neuro: Oriented X 3. No motor deficit. No sensory deficit. LABS, X-RAYS, AND EKG EKG: No acute process. No acute ischemia. Narrow-complex bradycardia (56). Sinus bradycardia. Normal P waves. Normal ENA. Normal QRS complex. Normal axis. Normal ST and T waves, QT and QTc. Prior EKG unavailable. The study has been interpreted contemporaneously by me. The study has been independently viewed by me. The EKG appears to be a good tracing. Chest X-ray: No acute disease. Normal lung markings present. Mediastinum normal. Great vessels normal. No infiltrate. No fracture. No bony lesion present. Views: PA. Technique: good. The X-rays were independently viewed by me and interpreted contemporaneously by me. Laboratory Tests: UA-Culture if indicated: (FRANCISCO: 02/22/2017 10:10) ( MsgRcvd 02/22/2017 10:26) Final results Test Result Flag Units (Reference) URINE COLOR YELLOW URINE APPEARANCE CLEAR URINE GLUCOSE NEGATIVE (NEGATIVE) URINE BILIRUBIN NEGATIVE (NEGATIVE) URINE KETONE NEGATIVE (NEGATIVE) URINE SPECIFIC GRAVITY 1.015 (1.010-1.030) URINE PH 7.0 (5.0-8.0) URINE PROTEIN NEGATIVE (NEGATIVE) URINE UROBILINOGEN 0.2 EU/dL (0.2-1.0) URINE NITRITE NEGATIVE (NEGATIVE) URINE BLOOD NEGATIVE (NEGATIVE) URINE LEUK ESTERASE NEGATIVE (NEGATIVE) URINE RBC 0-1 rbc/hpf (0-1) URINE WBC 0-1 wbc/hpf (0-1) URINE EPITHELIAL CELLS 0-1 EPI/hpf (0-5) URINE BACTERIA NONE SEEN (NONE SEEN) URINE COMMENT CULT NOT INDICATED URINE CULTURES ARE SET-UP BASED ON THE FOLLOWING CRITERIA:POSITIVE NITRITEPOSITIVE LEUKOCYTE ESTERASEGREATER THAN 10 WHITE BLOOD CELLSMODERATE (2+) OR GREATER BACTERIA CBC w Diff: (FRANCISCO: 02/22/2017 05:29) ( [facility] 02/22/2017 05:43) Final results Test Result Flag Units (Reference) WHITE BLOOD COUNT 5.8 K/uL (4.5-11.5) RED BLOOD COUNT 4.88 M/uL (4.50-5.90) HEMOGLOBIN 13.9 gm/dL (13.5-17.5) HEMATOCRIT 41.5 % (41.0-53.0) MEAN CELL VOLUME 85 fL (80-100) MEAN CORPUSCULAR HGB 28 pg (26-34) MEAN CORPUSCULAR HGB CONC 33 g/dL (31-37) RED CELL DISTRIBUTION WIDTH 14.1 % (11.6-14.8) PLATELET COUNT 199 K/uL (150-400) NEUTROPHIL % 48.3 L % (50-75) LYMPH % 41.9 H % (25-40) MONO % 7.7 % (3-14) EOSINOPHIL % 1.8 % (0-4) BASOPHIL % 0.3 % (0-2) PT with INR: (FRANCISCO: 02/22/2017 05:29) ( [facility] 02/22/2017 05:50) Final results Test Result Flag Units (Reference) INR 0.9 (0.8-1.2) Low Intensity Therapy: INR 1.5-2.0 PT range 18.5-23.1Mod.Intensity Therapy: INR 2.0-3.0 PT range 23.1-31.5High Intensity Therapy: INR 2.5-3.5 PT range 27.4-35.5High Intensity Therapy 2: INR 3.0-4.0 PT range 31.5-39.3 Troponin-I: (FRANCISCO: 02/22/2017 11:49) ( [facility] 02/22/2017 12:33) Final results Test Result Flag Units (Reference) TROPONIN I 0.05 ng/mL (0.00-1.5) TROPONIN REFERENCE RANGE:<0.1 NEGATIVE0.1-1.5 INDETERMINANT>1.5 POSITIVE Troponin-I: (FRANCISCO: 02/22/2017 07:40) ( MsgRcvd 02/22/2017 08:25) Final results Test Result Flag Units (Reference) TROPONIN I 0.08 ng/mL (0.00-1.5) TROPONIN REFERENCE RANGE:<0.1 NEGATIVE0.1-1.5 INDETERMINANT>1.5 POSITIVE CMP: (FRANCISCO: 02/22/2017 05:29) ( MsgRcvd 02/22/2017 05:59) Final results Test Result Flag Units (Reference) GLUCOSE 142 H mg/dL (70-110) BUN 16 mg/dL (7-18) CREATININE 1.5 H mg/dL (0.6-1.3) Estimated GFR 52.87 mL/min Estimated GFR- >60 mL/min Note: Persistent reduction over 3 months in eGFR<60 mL/min/1.73 m2 defines CKD. Patients with eGFR values>=60 mL/min/1.73 m2 may also have CKD if evidence ofpersistent proteinuria. Additional information may be foundat www.kidney.org. SODIUM 139 mmol/L (136-145) POTASSIUM 4.0 mmol/L (3.5-5.1) CHLORIDE 102 mmol/L (98-107) CARBON DIOXIDE 28 mmol/L (21-32) CALCIUM 9.0 mg/dL (8.5-10.1) TOTAL PROTEIN 7.6 g/dL (6.4-8.2) ALBUMIN 3.8 g/dL (3.3-5.0) BILIRUBIN, TOTAL 0.5 mg/dL (0.0-1.0) ALKALINE PHOSPHATASE 57 U/L (46-116) AST (SGOT) 15 U/L (15-37) ALT (SGPT) 26 U/L (12-78) TROPONIN I 0.06 ng/mL (0.00-1.5) TROPONIN REFERENCE RANGE:<0.1 NEGATIVE0.1-1.5 INDETERMINANT>1.5 POSITIVE . PROGRESS AND PROCEDURES Course of Care: The patient is a 51-year-old male with past medical history significant for reflux presenting for evaluation of chest pain. Symptoms at this time appear to be reflux in nature. Patient will be evaluated with GI cocktail as well as laboratory studies for evaluation of patient's chest pain. Patient is at low risk on the well's score. Patient is agreeable to the treatment plan. At this time differential diagnosis includes gastritis versus reflux versus acute myocardial infarction. Patient was reevaluated after the GI cocktail was provided. Patient reported relief of his symptom Because of the patient's improvement with symptoms of pain with the GI cocktail feel the patient's discomfort is likely due to the reflux. Patient however will be evaluated with a delta troponin for further evaluation of the patient's possible cardiac etiology of his pain howeverlow likelihood at this point given the patient's response to the GI cocktail. Had a discussion with patient in regards to the workup and diagnosis as well as plan of care at this point. Patient is agreeable to staying in the emergency department until the second laboratory study has been obtained. The patient's laboratory studies and imaging as well as EKG are otherwise unremarkable. Patient is resting in bed in no acute distress. GI cocktail continued to improve the patient's pain while here in the emergency department. Do not feel further workup in the emergency department or admission to the hospital required at this point in time. Patient does report chest pain and will be referred to cardiology for further workup and management. Patient reports that he had a negative stress test about a year ago. This puts the patient that even lower risk for acute myocardial infarction. Patient will be encouraged to follow up with his coater associate. If the patient is unable to follow up with his coater associate informed him he is more than welcome to follow up with the coater associate on our referral list. Prior to patient's departure from the emergency department is noted to be resting in bed and in no acute distress. CLINICAL IMPRESSION 02/22/2017 05:30 BP: 153/84. HR: 57. RR: 16. O2 saturation: 95%. 02/22/2017 05:29 Temp: 97.7 F. Oxygen saturation normal. Atypical chest pain .12 lead EKG performed. INSTRUCTIONS Prescription Medications: Prednisone every day for 5 days. Dispense sufficient quantity. No refills. (60 mg PO) (Electronically signed by John Márquez Dr. 02/27/2017 3:31) Time Seen: 525. Arrived- By private vehicle. Historian- patient. HISTORY OF PRESENT ILLNESS Chief Complaint: CHEST PAIN. At its maximum, severity described as moderate. When seen in the E.D., severity described as moderate. Modifying factors. Not worsened by anything. Not relieved by anything. It is described as burning and it is described as located in the central chest area. No radiation. This started today and is still present. It was abrupt in onset and has been constant and waxing/waning but is not gone now. Onset during rest. The patient has had nausea and vomiting. (burping and sour taste in mouth.). No difficulty breathing or diaphoresis. No additional chest pain. Similar symptoms previously: (hx of GERD). Recent medical care: Not recently seen/assessed. REVIEW OF SYSTEMS No fever, chills or skin rash. All systems otherwise negative, except as recorded above. PAST HISTORY Denies the following risk factors for DVT/PE - history of DVT and pulmonary embolism, recent surgery, recent KS and congestive heart failure. Denies the following risk factors for DVT/PE - cancer, clotting disorder, estrogens, obesity and immobility. Denies the following risk factors for DVT/PE - advanced in age and vena cava filter. Medications: Triglyceride pill. Blood Pressure Pill. Ranitidine HCl Oral. Aciphex Oral. Allergies: Codeine. SOCIAL HISTORY Never smoker. No alcohol use or drug use. No recent travel. Is a local resident. FAMILY HISTORY History of heart disease with premature onset in first-degree relative (father). ADDITIONAL NOTES The nursing notes have been reviewed. PHYSICAL EXAM Vital Signs: 02/22/2017 05:30 BP: 153/84. HR: 57. RR: 16. O2 saturation: 95%. 02/22/2017 05:29 Temp: 97.7 F. Blood pressure normal. Oxygen saturation normal. Appearance: Alert. Oriented X3. Patient in mild distress. (non-toxic. polite. pleasant. cooperative.). Neck: Normal inspection. Neck supple. CVS: Normal heart rate and rhythm. Heart sounds normal. Pulses normal. Respiratory: No respiratory distress. Breath sounds normal. Chest nontender. Abdomen: Soft and nontender. Bowel sounds normal. Back: Normal external inspection. Skin: Skin warm and dry. Normal skin color. No rash. Normal skin turgor. Extremities: Extremities exhibit normal ROM. No lower extremity edema. Neuro: Oriented X 3. No motor deficit. No sensory deficit. LABS, X-RAYS, AND EKG EKG: No acute process. No acute ischemia. Narrow-complex bradycardia (56). Sinus bradycardia. Normal P waves. Normal ENA. Normal QRS complex. Normal axis. Normal ST and T waves, QT and QTc. Prior EKG unavailable. The study has been interpreted contemporaneously by me. The study has been independently viewed by me. The EKG appears to be a good tracing. Chest X-ray: No acute disease. Normal lung markings present. Mediastinum normal. Great vessels normal. No infiltrate. No fracture. No bony lesion present. Views: PA. Technique: good. The X-rays were independently viewed by me and interpreted contemporaneously by me. Laboratory Tests: CBC w Diff: (FRANCISCO: 02/22/2017 05:29) ( MsgRcvd 02/22/2017 05:43) Final results Test Result Flag Units (Reference) WHITE BLOOD COUNT 5.8 K/uL (4.5-11.5) RED BLOOD COUNT 4.88 M/uL (4.50-5.90) HEMOGLOBIN 13.9 gm/dL (13.5-17.5) HEMATOCRIT 41.5 % (41.0-53.0) MEAN CELL VOLUME 85 fL (80-100) MEAN CORPUSCULAR HGB 28 pg (26-34) MEAN CORPUSCULAR HGB CONC 33 g/dL (31-37) RED CELL DISTRIBUTION WIDTH 14.1 % (11.6-14.8) PLATELET COUNT 199 K/uL (150-400) NEUTROPHIL % 48.3 L % (50-75) LYMPH % 41.9 H % (25-40) MONO % 7.7 % (3-14) EOSINOPHIL % 1.8 % (0-4) BASOPHIL % 0.3 % (0-2) PT with INR: (FRANCISCO: 02/22/2017 05:29) ( MsgRcvd 02/22/2017 05:50) Final results Test Result Flag Units (Reference) INR 0.9 (0.8-1.2) Low Intensity Therapy: INR 1.5-2.0 PT range 18.5-23.1Mod.Intensity Therapy: INR 2.0-3.0 PT range 23.1-31.5High Intensity Therapy: INR 2.5-3.5 PT range 27.4-35.5High Intensity Therapy 2: INR 3.0-4.0 PT range 31.5-39.3 Troponin-I: (FRANCISCO: 02/22/2017 07:40) ( [facility] 02/22/2017 08:25) Final results Test Result Flag Units (Reference) TROPONIN I 0.08 ng/mL (0.00-1.5) TROPONIN REFERENCE RANGE:<0.1 NEGATIVE0.1-1.5 INDETERMINANT>1.5 POSITIVE CMP: (FRANCISCO: 02/22/2017 05:29) ( [facility] 02/22/2017 05:59) Final results Test Result Flag Units (Reference) GLUCOSE 142 H mg/dL (70-110) BUN 16 mg/dL (7-18) CREATININE 1.5 H mg/dL (0.6-1.3) Estimated GFR 52.87 mL/min Estimated GFR- >60 mL/min Note: Persistent reduction over 3 months in eGFR<60 mL/min/1.73 m2 defines CKD. Patients with eGFR values>=60 mL/min/1.73 m2 may also have CKD if evidence ofpersistent proteinuria. Additional information may be foundat www.kidney.org. SODIUM 139 mmol/L (136-145) POTASSIUM 4.0 mmol/L (3.5-5.1) CHLORIDE 102 mmol/L (98-107) CARBON DIOXIDE 28 mmol/L (21-32) CALCIUM 9.0 mg/dL (8.5-10.1) TOTAL PROTEIN 7.6 g/dL (6.4-8.2) ALBUMIN 3.8 g/dL (3.3-5.0) BILIRUBIN, TOTAL 0.5 mg/dL (0.0-1.0) ALKALINE PHOSPHATASE 57 U/L (46-116) AST (SGOT) 15 U/L (15-37) ALT (SGPT) 26 U/L (12-78) TROPONIN I 0.06 ng/mL (0.00-1.5) TROPONIN REFERENCE RANGE:<0.1 NEGATIVE0.1-1.5 INDETERMINANT>1.5 POSITIVE . Pulse Oximetry: 02/22/2017 05:30 O2 saturation: 95%. (FIO2 - room air). Interpretation: normal. PROGRESS AND PROCEDURES Course of Care: Pt was signed out to me by Dr. Márquez at change of shift, pending repeat troponin and stress test in the afternoon. Pt remained stable and without further complaints in the ED. His repeat troponin was unremarkable, and his stress test was negative, per Dr. Sauer. Pt was feeling well, and I felt he was stable for d/c home. Discussed case with hospitalist, (Camacho). Reviewed test results. Patient and spouse counseled in person regarding the patient's stable condition, test results, diagnosis and need for follow-up. Concerns were addressed. Old medical records reviewed. Disposition: Discharged. Condition: stable and improved. CLINICAL IMPRESSION 02/22/2017 05:30 BP: 153/84. HR: 57. RR: 16. O2 saturation: 95%. 02/22/2017 05:29 Temp: 97.7 F. Oxygen saturation normal. Atypical chest pain .12 lead EKG performed. INSTRUCTIONS Do not work today. (Your stress test looks great--completely normal. Your last set of cardiac enzymes (bloodwork) is normal, also. No emergent cause of your chest pain has been found.). Warnings: GENERAL WARNINGS: Return or contact your physician immediately if your condition worsens or changes unexpectedly, if not improving as expected, or if other problems arise. Your Current Medications: CONTINUE TAKING THE FOLLOWING MEDICATIONS: Aciphex Oral. Blood Pressure Pill*. Ranitidine HCl Oral. Triglyceride pill*. Prescription Medications: Prednisone 20 mg: take 3 orally every day for 5 days. Dispense fifteen (15). No refills. Follow-up: Follow up with your doctor in seven days if not better. Understanding of the discharge instructions verbalized by patient. (Electronically signed by Janie Munoz MD 02/27/2017 21:50)
--- NOTE | 2017-02-27 21:51 | ED MAR SUMMARY ---
..... Medication Administration Record [facility] [address] [place] [address] Patient: KD DOMINGUEZ Visit ID: [id number] 51y, M Weight: 104.3 kg Height/Length: 70 in BMI: 33 ALLERGIES: Codeine Given 05:42 02/22/2017 Rosio Macdonald R.N. Medication Administered: GI COCKTAIL WHITE [PO] (SIMETHICONE), Dose: 30 mL Oral Suspension PO. Medication Ordered: GI Cocktail WHITE PO 30 mL (NOW). Given 05:42 02/22/2017 Rosio Macdonald R.N. Medication Administered: ZOFRAN [IVP] (ONDANSETRON HCL), Dose: 4 mg IVP over 1 minute(s), Site: #1 right AC. Medication Ordered: Zofran IV 4 mg (NOW). Given 06:12 02/22/2017 Rosio Macdonald R.N. Medication Administered: MORPHINE [IVP], Dose: 4 mg IVP over 1 minute(s), Site: #1 right AC. Medication Ordered: Morphine IV 4 mg (HIGH ALERT MEDICATION, NOW). Start 06:45 02/22/2017 Rosio Macdonald R.N., Stop 07:45 02/22/2017 Ellen Louis R.N. Medication Administered: PHENERGAN [IVPB] (PROMETHAZINE HCL), Dose: 25 mg IVPB over 15 minute(s), Rate: 200 mL/hr, Dispensed: 50 mL bag, Site: #1 right AC. Medication Ordered: Phenergan IV 25 mg (HIGH ALERT MEDICATION, NOW). Given 07:52 02/22/2017 Ellen Louis R.N. Medication Administered: GI COCKTAIL WHITE [PO] (SIMETHICONE), Dose: 30 mL Oral Suspension PO. Medication Ordered: GI Cocktail WHITE PO 30 mL (once after nausea improves). Start 07:52 02/22/2017 Ellen Louis R.N., Stop 09:16 02/22/2017 Ellen Louis R.N. Medication Administered: IV NS (SALINE), Dose: IV Fluids over 1 hour(s), Rate: 999 mL/hr, Dispensed: 1000 mL bag, Site: #1 right AC. Medication Ordered: IV NS : initial bolus 1000 mL (1000 mL/hr), then none - for X1 (NOW). Given 09:24 02/22/2017 Kel Ambrosio R.N. Medication Administered: ASPIRIN [PO], Dose: 325 mg Tablets PO. Medication Ordered: Aspirin PO 325 mg (Do not crush or chew, NOW).
--- NOTE | 2017-02-27 21:51 | ED MED RECONCILIATION SUMMARY ---
Patient: KD DOMINGUEZ Medication Reconciliation Report [facility] VisitID: [id number] [address] [place] [address] 51y, M Registration Date/Time: 02/22/2017 Weight: 104.3 kg Height/Length: 70 in. BMI: 33.0 ALLERGIES: Codeine The patient's Home Medications are listed below: CONTINUE TAKING THE FOLLOWING MEDICATIONS: Aciphex Oral Blood Pressure Pill Ranitidine HCl Oral Triglyceride pill The source(s) of the original Home Medication information: patient The following Medications were given to the patient in the Emergency Department: GI COCKTAIL WHITE [PO] PO 30 mL, administered: 02/22/2017 5:42:00 AM Zofran [IVP] IVP 4 mg, administered: 02/22/2017 5:42:00 AM Morphine [IVP] IVP 4 mg, administered: 02/22/2017 6:12:00 AM PHENERGAN [IVPB] IVPB bolus 0, then 25 mg 200 mL/hr, administered: 02/22/2017 6:45:00 AM GI COCKTAIL WHITE [PO] PO 30 mL, administered: 02/22/2017 7:52:00 AM IV NS IV Fluids bolus 0, then 999 mL/hr, administered: 02/22/2017 7:52:00 AM Aspirin [PO] PO 325 mg, administered: 02/22/2017 9:24:00 AM The following Medications were prescribed to the patient: Prednisone every day for 5 days. Dispense sufficient quantity. No refills.(60 mg PO) -- John Márquez Dr. Prednisone 20 mg: take 3 orally every day for 5 days. Dispense fifteen (15). No refills. -- Janie Munoz MD
--- NOTE | 2017-02-27 21:51 | ED MAR SUMMARY ---
..... Medication Administration Record [facility] [address] [place] [address] Patient: KD DOMINGUEZ Visit ID: [id number] 51y, M Weight: 104.3 kg Height/Length: 70 in BMI: 33 ALLERGIES: Codeine Given 05:42 02/22/2017 Rosio Macdonald R.N. Medication Administered: GI COCKTAIL WHITE [PO] (SIMETHICONE), Dose: 30 mL Oral Suspension PO. Medication Ordered: GI Cocktail WHITE PO 30 mL (NOW). Given 05:42 02/22/2017 Rosio Macdonald R.N. Medication Administered: ZOFRAN [IVP] (ONDANSETRON HCL), Dose: 4 mg IVP over 1 minute(s), Site: #1 right AC. Medication Ordered: Zofran IV 4 mg (NOW). Given 06:12 02/22/2017 Rosio Macdonald R.N. Medication Administered: MORPHINE [IVP], Dose: 4 mg IVP over 1 minute(s), Site: #1 right AC. Medication Ordered: Morphine IV 4 mg (HIGH ALERT MEDICATION, NOW). Start 06:45 02/22/2017 Rosio Macdonald R.N., Stop 07:45 02/22/2017 Ellen Louis R.N. Medication Administered: PHENERGAN [IVPB] (PROMETHAZINE HCL), Dose: 25 mg IVPB over 15 minute(s), Rate: 200 mL/hr, Dispensed: 50 mL bag, Site: #1 right AC. Medication Ordered: Phenergan IV 25 mg (HIGH ALERT MEDICATION, NOW). Given 07:52 02/22/2017 Ellen Louis R.N. Medication Administered: GI COCKTAIL WHITE [PO] (SIMETHICONE), Dose: 30 mL Oral Suspension PO. Medication Ordered: GI Cocktail WHITE PO 30 mL (once after nausea improves). Start 07:52 02/22/2017 Ellen Louis R.N., Stop 09:16 02/22/2017 Ellen Louis R.N. Medication Administered: IV NS (SALINE), Dose: IV Fluids over 1 hour(s), Rate: 999 mL/hr, Dispensed: 1000 mL bag, Site: #1 right AC. Medication Ordered: IV NS : initial bolus 1000 mL (1000 mL/hr), then none - for X1 (NOW). Given 09:24 02/22/2017 Kel Ambrosio R.N. Medication Administered: ASPIRIN [PO], Dose: 325 mg Tablets PO. Medication Ordered: Aspirin PO 325 mg (Do not crush or chew, NOW).
--- NOTE | 2017-02-27 21:51 | ED MED RECONCILIATION SUMMARY ---
Patient: KD DOMINGUEZ Medication Reconciliation Report [facility] VisitID: [id number] [address] [place] [address] 51y, M Registration Date/Time: 02/22/2017 Weight: 104.3 kg Height/Length: 70 in. BMI: 33.0 ALLERGIES: Codeine The patient's Home Medications are listed below: CONTINUE TAKING THE FOLLOWING MEDICATIONS: Aciphex Oral Blood Pressure Pill Ranitidine HCl Oral Triglyceride pill The source(s) of the original Home Medication information: patient The following Medications were given to the patient in the Emergency Department: GI COCKTAIL WHITE [PO] PO 30 mL, administered: 02/22/2017 5:42:00 AM Zofran [IVP] IVP 4 mg, administered: 02/22/2017 5:42:00 AM Morphine [IVP] IVP 4 mg, administered: 02/22/2017 6:12:00 AM PHENERGAN [IVPB] IVPB bolus 0, then 25 mg 200 mL/hr, administered: 02/22/2017 6:45:00 AM GI COCKTAIL WHITE [PO] PO 30 mL, administered: 02/22/2017 7:52:00 AM IV NS IV Fluids bolus 0, then 999 mL/hr, administered: 02/22/2017 7:52:00 AM Aspirin [PO] PO 325 mg, administered: 02/22/2017 9:24:00 AM The following Medications were prescribed to the patient: Prednisone every day for 5 days. Dispense sufficient quantity. No refills.(60 mg PO) -- John Márquez Dr. Prednisone 20 mg: take 3 orally every day for 5 days. Dispense fifteen (15). No refills. -- Janie Munoz MD
--- NOTE | 2017-02-27 21:51 | ED DISCHARGE INSTRUCTIONS ---
Patient: KD DOMINGUEZ General Instructions [facility] VisitID: [id number] [place] [address] 51y, M Registration Date/Time: 02/22/2017 02/22/2017 05:30 BP: 153/84. HR: 57. RR: 16. O2 saturation: 95%. 02/22/2017 05:29 Temp: 97.7 F. Oxygen saturation normal. Atypical chest pain .12 lead EKG performed. INSTRUCTIONS Prescription Medications: Prednisone every day for 5 days. Dispense sufficient quantity. No refills. (60 mg PO) ADDITIONAL INFORMATION Chest Pain, Uncertain Cause Chest pain can happen for a number of reasons. Sometimes the cause can not be determined. If yourcondition does not seem serious, and your pain does not appear to be coming from your heart, your doctor may recommend watching it closely. Sometimes the signs of a serious problem take more time to appear. Therefore, watch for the warning signs listed below. Home care After your visit, follow these recommendations: Rest today and avoid strenuous activity. Take any prescribed medicine as directed. Follow-up care Follow up with your doctor or this facility as instructed or if you do not start to feel better within 24 hours. Call 911 Get immediate medical attention if any of the following occur: A change in the type of pain: if it feels different, becomes more severe, lasts longer, or begins to spread into your shoulder, arm, neck, jaw or back Shortness of breath or increased pain with breathing Weakness, dizziness, or fainting Rapid heart beat Get prompt medical attention Call your doctor right away if any of the following occur: Cough with dark colored sputum (phlegm) or blood Fever of 100.4F(38C) or higher, or as directed by your health care provider Swelling, pain or redness in one leg Prednisone Oral tablet What is this medicine? PREDNISONE (PRED ni sone) is a corticosteroid. It is commonly used to treat inflammation of the skin, joints, lungs, and other organs. Common conditions treated include asthma, allergies, and arthritis. It is also used for other conditions, such as blood disorders and diseases of the adrenal glands. How should I use this medicine? Take this medicine by mouth with a glass of water. Follow the directions on the prescription label. Take this medicine with food. If you are taking this medicine once a day, take it in the morning. Do not take more medicine than you are told to take. Do not suddenly stop taking your medicine because you may develop a severe reaction. Your doctor will tell you how much medicine to take. If your doctor wants you to stop the medicine, the dose may be slowly lowered over time to avoid any side effects. Talk to your manager continuous improvement regarding the use of this medicine in children. Special care may be needed. What side effects may I notice from receiving this medicine? Side effects that you should report to your doctor or health director of managed care as soon as possible: allergic reactions like skin rash, itching or hives, swelling of the face, lips, or tongue changes in emotions or moods changes in vision depressed mood eye pain fever or chills, cough, sore throat, pain or difficulty passing urine increased thirst swelling of ankles, feet Side effects that usually do not require medical attention (report to your doctor or health director of managed care if they continue or are bothersome): confusion, excitement, restlessness headache nausea, vomiting skin problems, acne, thin and shiny skin trouble sleeping weight gain What may interact with this medicine? Do not take this medicine with any of the following medications: metyrapone mifepristone This medicine may also interact with the following medications: aminoglutethimide amphotericin B aspirin and aspirin-like medicines barbiturates certain medicines for diabetes, like glipizide or glyburide cholestyramine cholinesterase inhibitors cyclosporine digoxin diuretics ephedrine female hormones, like estrogens and control pills isoniazid ketoconazole NSAIDS, medicines for pain and inflammation, like ibuprofen or naproxen phenytoin rifampin toxoids vaccines warfarin What if I miss a dose? If you miss a dose, take it as soon as you can. If it is almost time for your next dose, talk to your doctor or health director of managed care. You may need to miss a dose or take an extra dose. Do not take double or extra doses without advice. Where should I keep my medicine? Keep out of the reach of children. Store at room temperature between 15 and 30 degrees C (59 and 86 degrees F). Protect from light. Keep container tightly closed. Throw away any unused medicine after the expiration date. What should I tell my health care provider before I take this medicine? They need to know if you have any of these conditions: Esha's syndrome diabetes glaucoma heart disease high blood pressure infection (especially a virus infection such as chickenpox, cold sores, or herpes) kidney disease liver disease mental illness myasthenia gravis osteoporosis seizures stomach or intestine problems thyroid disease an unusual or allergic reaction to lactose, prednisone, other medicines, foods, dyes, or preservatives or trying to get breast-feeding What should I watch for while using this medicine? Visit your doctor or health director of managed care for regular checks on your progress. If you are taking this medicine over a prolonged period, carry an identification card with your name and address, the type and dose of your medicine, and your doctor's name and address. This medicine may increase your risk of getting an infection. Tell your doctor or health director of managed care if you are around anyone with measles or chickenpox, or if you develop sores or blisters that do not heal properly. If you are going to have surgery, tell your doctor or health director of managed care that you have taken this medicine within the last twelve months. Ask your doctor or health director of managed care about your diet. You may need to lower the amount of salt you eat. This medicine may affect blood sugar levels. If you have diabetes, check with your doctor or health director of managed care before you change your diet or the dose of your diabetic medicine. You have been given the following additional information: Chest Pain, Uncertain Cause Prednisone Oral tablet (Electronically signed by John M[address]quez Dr. 02/27/2017 3:31) 02/22/2017 05:30 BP: 153/84. HR: 57. RR: 16. O2 saturation: 95%. 02/22/2017 05:29 Temp: 97.7 F. Oxygen saturation normal. Atypical chest pain .12 lead EKG performed. INSTRUCTIONS Do not work today. (Your stress test looks great--completely normal. Your last set of cardiac enzymes (bloodwork) is normal, also. No emergent cause of your chest pain has been found.). Warnings: GENERAL WARNINGS: Return or contact your physician immediately if your condition worsens or changes unexpectedly, if not improving as expected, or if other problems arise. Your Current Medications: CONTINUE TAKING THE FOLLOWING MEDICATIONS: Aciphex Oral. Blood Pressure Pill*. Ranitidine HCl Oral. Triglyceride pill*. Prescription Medications: Prednisone 20 mg: take 3 orally every day for 5 days. Dispense fifteen (15). No refills. Follow-up: Follow up with your doctor in seven days if not better. Understanding of the discharge instructions verbalized by patient. ADDITIONAL INFORMATION Chest Pain, Uncertain Cause Chest pain can happen for a number of reasons. Sometimes the cause can not be determined. If yourcondition does not seem serious, and your pain does not appear to be coming from your heart, your doctor may recommend watching it closely. Sometimes the signs of a serious problem take more time to appear. Therefore, watch for the warning signs listed below. Home care After your visit, follow these recommendations: Rest today and avoid strenuous activity. Take any prescribed medicine as directed. Follow-up care Follow up with your doctor or this facility as instructed or if you do not start to feel better within 24 hours. Call 911 Get immediate medical attention if any of the following occur: A change in the type of pain: if it feels different, becomes more severe, lasts longer, or begins to spread into your shoulder, arm, neck, jaw or back Shortness of breath or increased pain with breathing Weakness, dizziness, or fainting Rapid heart beat Get prompt medical attention Call your doctor right away if any of the following occur: Cough with dark colored sputum (phlegm) or blood Fever of 100.4F(38C) or higher, or as directed by your health care provider Swelling, pain or redness in one leg Prednisone Oral tablet What is this medicine? PREDNISONE (PRED ni sone) is a corticosteroid. It is commonly used to treat inflammation of the skin, joints, lungs, and other organs. Common conditions treated include asthma, allergies, and arthritis. It is also used for other conditions, such as blood disorders and diseases of the adrenal glands. How should I use this medicine? Take this medicine by mouth with a glass of water. Follow the directions on the prescription label. Take this medicine with food. If you are taking this medicine once a day, take it in the morning. Do not take more medicine than you are told to take. Do not suddenly stop taking your medicine because you may develop a severe reaction. Your doctor will tell you how much medicine to take. If your doctor wants you to stop the medicine, the dose may be slowly lowered over time to avoid any side effects. Talk to your manager continuous improvement regarding the use of this medicine in children. Special care may be needed. What side effects may I notice from receiving this medicine? Side effects that you should report to your doctor or health director of managed care as soon as possible: allergic reactions like skin rash, itching or hives, swelling of the face, lips, or tongue changes in emotions or moods changes in vision depressed mood eye pain fever or chills, cough, sore throat, pain or difficulty passing urine increased thirst swelling of ankles, feet Side effects that usually do not require medical attention (report to your doctor or health director of managed care if they continue or are bothersome): confusion, excitement, restlessness headache nausea, vomiting skin problems, acne, thin and shiny skin trouble sleeping weight gain What may interact with this medicine? Do not take this medicine with any of the following medications: metyrapone mifepristone This medicine may also interact with the following medications: aminoglutethimide amphotericin B aspirin and aspirin-like medicines barbiturates certain medicines for diabetes, like glipizide or glyburide cholestyramine cholinesterase inhibitors cyclosporine digoxin diuretics ephedrine female hormones, like estrogens and control pills isoniazid ketoconazole NSAIDS, medicines for pain and inflammation, like ibuprofen or naproxen phenytoin rifampin toxoids vaccines warfarin What if I miss a dose? If you miss a dose, take it as soon as you can. If it is almost time for your next dose, talk to your doctor or health director of managed care. You may need to miss a dose or take an extra dose. Do not take double or extra doses without advice. Where should I keep my medicine? Keep out of the reach of children. Store at room temperature between 15 and 30 degrees C (59 and 86 degrees F). Protect from light. Keep container tightly closed. Throw away any unused medicine after the expiration date. What should I tell my health care provider before I take this medicine? They need to know if you have any of these conditions: [place]'s syndrome diabetes glaucoma heart disease high blood pressure infection (especially a virus infection such as chickenpox, cold sores, or herpes) kidney disease liver disease mental illness myasthenia gravis osteoporosis seizures stomach or intestine problems thyroid disease an unusual or allergic reaction to lactose, prednisone, other medicines, foods, dyes, or preservatives or trying to get breast-feeding What should I watch for while using this medicine? Visit your doctor or health director of managed care for regular checks on your progress. If you are taking this medicine over a prolonged period, carry an identification card with your name and address, the type and dose of your medicine, and your doctor's name and address. This medicine may increase your risk of getting an infection. Tell your doctor or health director of managed care if you are around anyone with measles or chickenpox, or if you develop sores or blisters that do not heal properly. If you are going to have surgery, tell your doctor or health director of managed care that you have taken this medicine within the last twelve months. Ask your doctor or health director of managed care about your diet. You may need to lower the amount of salt you eat. This medicine may affect blood sugar levels. If you have diabetes, check with your doctor or health director of managed care before you change your diet or the dose of your diabetic medicine. You have been given the following additional information: Chest Pain, Uncertain Cause Prednisone Oral tablet Do not work today. (Electronically signed by Janie Munoz MD 02/27/2017 21:50)
--- NOTE | 2017-02-27 21:51 | ED DISCHARGE INSTRUCTIONS ---
Patient: KD DOMINGUEZ General Instructions [facility] VisitID: [id number] [place] [address] 51y, M Registration Date/Time: 02/22/2017 02/22/2017 05:30 BP: 153/84. HR: 57. RR: 16. O2 saturation: 95%. 02/22/2017 05:29 Temp: 97.7 F. Oxygen saturation normal. Atypical chest pain .12 lead EKG performed. INSTRUCTIONS Prescription Medications: Prednisone every day for 5 days. Dispense sufficient quantity. No refills. (60 mg PO) ADDITIONAL INFORMATION Chest Pain, Uncertain Cause Chest pain can happen for a number of reasons. Sometimes the cause can not be determined. If yourcondition does not seem serious, and your pain does not appear to be coming from your heart, your doctor may recommend watching it closely. Sometimes the signs of a serious problem take more time to appear. Therefore, watch for the warning signs listed below. Home care After your visit, follow these recommendations: Rest today and avoid strenuous activity. Take any prescribed medicine as directed. Follow-up care Follow up with your doctor or this facility as instructed or if you do not start to feel better within 24 hours. Call 911 Get immediate medical attention if any of the following occur: A change in the type of pain: if it feels different, becomes more severe, lasts longer, or begins to spread into your shoulder, arm, neck, jaw or back Shortness of breath or increased pain with breathing Weakness, dizziness, or fainting Rapid heart beat Get prompt medical attention Call your doctor right away if any of the following occur: Cough with dark colored sputum (phlegm) or blood Fever of 100.4F(38C) or higher, or as directed by your health care provider Swelling, pain or redness in one leg Prednisone Oral tablet What is this medicine? PREDNISONE (PRED ni sone) is a corticosteroid. It is commonly used to treat inflammation of the skin, joints, lungs, and other organs. Common conditions treated include asthma, allergies, and arthritis. It is also used for other conditions, such as blood disorders and diseases of the adrenal glands. How should I use this medicine? Take this medicine by mouth with a glass of water. Follow the directions on the prescription label. Take this medicine with food. If you are taking this medicine once a day, take it in the morning. Do not take more medicine than you are told to take. Do not suddenly stop taking your medicine because you may develop a severe reaction. Your doctor will tell you how much medicine to take. If your doctor wants you to stop the medicine, the dose may be slowly lowered over time to avoid any side effects. Talk to your yoke presser regarding the use of this medicine in children. Special care may be needed. What side effects may I notice from receiving this medicine? Side effects that you should report to your doctor or health farm or ranch animal caretaker as soon as possible: allergic reactions like skin rash, itching or hives, swelling of the face, lips, or tongue changes in emotions or moods changes in vision depressed mood eye pain fever or chills, cough, sore throat, pain or difficulty passing urine increased thirst swelling of ankles, feet Side effects that usually do not require medical attention (report to your doctor or health farm or ranch animal caretaker if they continue or are bothersome): confusion, excitement, restlessness headache nausea, vomiting skin problems, acne, thin and shiny skin trouble sleeping weight gain What may interact with this medicine? Do not take this medicine with any of the following medications: metyrapone mifepristone This medicine may also interact with the following medications: aminoglutethimide amphotericin B aspirin and aspirin-like medicines barbiturates certain medicines for diabetes, like glipizide or glyburide cholestyramine cholinesterase inhibitors cyclosporine digoxin diuretics ephedrine female hormones, like estrogens and control pills isoniazid ketoconazole NSAIDS, medicines for pain and inflammation, like ibuprofen or naproxen phenytoin rifampin toxoids vaccines warfarin What if I miss a dose? If you miss a dose, take it as soon as you can. If it is almost time for your next dose, talk to your doctor or health farm or ranch animal caretaker. You may need to miss a dose or take an extra dose. Do not take double or extra doses without advice. Where should I keep my medicine? Keep out of the reach of children. Store at room temperature between 15 and 30 degrees C (59 and 86 degrees F). Protect from light. Keep container tightly closed. Throw away any unused medicine after the expiration date. What should I tell my health care provider before I take this medicine? They need to know if you have any of these conditions: Esha's syndrome diabetes glaucoma heart disease high blood pressure infection (especially a virus infection such as chickenpox, cold sores, or herpes) kidney disease liver disease mental illness myasthenia gravis osteoporosis seizures stomach or intestine problems thyroid disease an unusual or allergic reaction to lactose, prednisone, other medicines, foods, dyes, or preservatives or trying to get breast-feeding What should I watch for while using this medicine? Visit your doctor or health farm or ranch animal caretaker for regular checks on your progress. If you are taking this medicine over a prolonged period, carry an identification card with your name and address, the type and dose of your medicine, and your doctor's name and address. This medicine may increase your risk of getting an infection. Tell your doctor or health farm or ranch animal caretaker if you are around anyone with measles or chickenpox, or if you develop sores or blisters that do not heal properly. If you are going to have surgery, tell your doctor or health farm or ranch animal caretaker that you have taken this medicine within the last twelve months. Ask your doctor or health farm or ranch animal caretaker about your diet. You may need to lower the amount of salt you eat. This medicine may affect blood sugar levels. If you have diabetes, check with your doctor or health farm or ranch animal caretaker before you change your diet or the dose of your diabetic medicine. You have been given the following additional information: Chest Pain, Uncertain Cause Prednisone Oral tablet (Electronically signed by John M[address]quez Dr. 02/27/2017 3:31) 02/22/2017 05:30 BP: 153/84. HR: 57. RR: 16. O2 saturation: 95%. 02/22/2017 05:29 Temp: 97.7 F. Oxygen saturation normal. Atypical chest pain .12 lead EKG performed. INSTRUCTIONS Do not work today. (Your stress test looks great--completely normal. Your last set of cardiac enzymes (bloodwork) is normal, also. No emergent cause of your chest pain has been found.). Warnings: GENERAL WARNINGS: Return or contact your physician immediately if your condition worsens or changes unexpectedly, if not improving as expected, or if other problems arise. Your Current Medications: CONTINUE TAKING THE FOLLOWING MEDICATIONS: Aciphex Oral. Blood Pressure Pill*. Ranitidine HCl Oral. Triglyceride pill*. Prescription Medications: Prednisone 20 mg: take 3 orally every day for 5 days. Dispense fifteen (15). No refills. Follow-up: Follow up with your doctor in seven days if not better. Understanding of the discharge instructions verbalized by patient. ADDITIONAL INFORMATION Chest Pain, Uncertain Cause Chest pain can happen for a number of reasons. Sometimes the cause can not be determined. If yourcondition does not seem serious, and your pain does not appear to be coming from your heart, your doctor may recommend watching it closely. Sometimes the signs of a serious problem take more time to appear. Therefore, watch for the warning signs listed below. Home care After your visit, follow these recommendations: Rest today and avoid strenuous activity. Take any prescribed medicine as directed. Follow-up care Follow up with your doctor or this facility as instructed or if you do not start to feel better within 24 hours. Call 911 Get immediate medical attention if any of the following occur: A change in the type of pain: if it feels different, becomes more severe, lasts longer, or begins to spread into your shoulder, arm, neck, jaw or back Shortness of breath or increased pain with breathing Weakness, dizziness, or fainting Rapid heart beat Get prompt medical attention Call your doctor right away if any of the following occur: Cough with dark colored sputum (phlegm) or blood Fever of 100.4F(38C) or higher, or as directed by your health care provider Swelling, pain or redness in one leg Prednisone Oral tablet What is this medicine? PREDNISONE (PRED ni sone) is a corticosteroid. It is commonly used to treat inflammation of the skin, joints, lungs, and other organs. Common conditions treated include asthma, allergies, and arthritis. It is also used for other conditions, such as blood disorders and diseases of the adrenal glands. How should I use this medicine? Take this medicine by mouth with a glass of water. Follow the directions on the prescription label. Take this medicine with food. If you are taking this medicine once a day, take it in the morning. Do not take more medicine than you are told to take. Do not suddenly stop taking your medicine because you may develop a severe reaction. Your doctor will tell you how much medicine to take. If your doctor wants you to stop the medicine, the dose may be slowly lowered over time to avoid any side effects. Talk to your yoke presser regarding the use of this medicine in children. Special care may be needed. What side effects may I notice from receiving this medicine? Side effects that you should report to your doctor or health farm or ranch animal caretaker as soon as possible: allergic reactions like skin rash, itching or hives, swelling of the face, lips, or tongue changes in emotions or moods changes in vision depressed mood eye pain fever or chills, cough, sore throat, pain or difficulty passing urine increased thirst swelling of ankles, feet Side effects that usually do not require medical attention (report to your doctor or health farm or ranch animal caretaker if they continue or are bothersome): confusion, excitement, restlessness headache nausea, vomiting skin problems, acne, thin and shiny skin trouble sleeping weight gain What may interact with this medicine? Do not take this medicine with any of the following medications: metyrapone mifepristone This medicine may also interact with the following medications: aminoglutethimide amphotericin B aspirin and aspirin-like medicines barbiturates certain medicines for diabetes, like glipizide or glyburide cholestyramine cholinesterase inhibitors cyclosporine digoxin diuretics ephedrine female hormones, like estrogens and control pills isoniazid ketoconazole NSAIDS, medicines for pain and inflammation, like ibuprofen or naproxen phenytoin rifampin toxoids vaccines warfarin What if I miss a dose? If you miss a dose, take it as soon as you can. If it is almost time for your next dose, talk to your doctor or health farm or ranch animal caretaker. You may need to miss a dose or take an extra dose. Do not take double or extra doses without advice. Where should I keep my medicine? Keep out of the reach of children. Store at room temperature between 15 and 30 degrees C (59 and 86 degrees F). Protect from light. Keep container tightly closed. Throw away any unused medicine after the expiration date. What should I tell my health care provider before I take this medicine? They need to know if you have any of these conditions: [place]'s syndrome diabetes glaucoma heart disease high blood pressure infection (especially a virus infection such as chickenpox, cold sores, or herpes) kidney disease liver disease mental illness myasthenia gravis osteoporosis seizures stomach or intestine problems thyroid disease an unusual or allergic reaction to lactose, prednisone, other medicines, foods, dyes, or preservatives or trying to get breast-feeding What should I watch for while using this medicine? Visit your doctor or health farm or ranch animal caretaker for regular checks on your progress. If you are taking this medicine over a prolonged period, carry an identification card with your name and address, the type and dose of your medicine, and your doctor's name and address. This medicine may increase your risk of getting an infection. Tell your doctor or health farm or ranch animal caretaker if you are around anyone with measles or chickenpox, or if you develop sores or blisters that do not heal properly. If you are going to have surgery, tell your doctor or health farm or ranch animal caretaker that you have taken this medicine within the last twelve months. Ask your doctor or health farm or ranch animal caretaker about your diet. You may need to lower the amount of salt you eat. This medicine may affect blood sugar levels. If you have diabetes, check with your doctor or health farm or ranch animal caretaker before you change your diet or the dose of your diabetic medicine. You have been given the following additional information: Chest Pain, Uncertain Cause Prednisone Oral tablet Do not work today. (Electronically signed by Janie Munoz MD 02/27/2017 21:50)
== END 2017-02-22 16:10 | disposition home or self-care (01) ==
LOC: ED SRH 05:23
DX: R07.89 Other chest pain (principal); I10 Essential (primary) hypertension; K21.9 Gastro-esophageal reflux disease without esophagitis; E78.00 Pure hypercholesterolemia, unspecified; Z79.899 Other long term (current) drug therapy; Z88.5 Allergy status to narcotic agent
CPT/HCPCS: 90004; 90074; 90100; 90616; 94060; 95059